=== PATIENT | female | born 1960 | race Caucasian/White ===

== ENCOUNTER 2017-06-11 15:48 | Emergency (ER) | payer OTHER ==
[2017-06-11 15:55] VITALS: RESP 18; TEMP 98.2
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
[2017-06-11] MEDS ORDERED: ONDANSETRON DISINTEGRATING 4 MG TAB PO ONE (17:56)
[2017-06-11] MEDS ORDERED: IBUPROFEN 600 MG TAB PO ONE ×2 (17:56→17:57)
[2017-06-11] MEDS ORDERED: ONDANSETRON DISINTEGRATING 4 MG TAB ONE (17:57)
[2017-06-11 18:15] VITALS: BP 114/74; PULSE 82; O2SAT 96
== END 2017-06-11 18:15 | disposition home or self-care (01) ==
DX: S09.90XA Unspecified injury of head, initial encounter (principal); S16.1XXA Strain of muscle, fascia and tendon at neck level, initial encounter; F17.200 Nicotine dependence, unspecified, uncomplicated; S79.911A Unspecified injury of right hip, initial encounter; V49.40XA Driver injured in collision with unspecified motor vehicles in traffic accident, initial encounter; Y92.410 Unspecified street and highway as the place of occurrence of the external cause; Y93.89 Activity, other specified

== ENCOUNTER → 2017-11-27 | Outpatient (CLI) | payer OTHER | LOC: FIMAGING 16:41 | PROVIDERS: ATTEND Physical Medicine & Rehabilitation | DX: M79.632 Pain in left forearm (principal); M79.89 Other specified soft tissue disorders; M18.12 Unilateral primary osteoarthritis of first carpometacarpal joint, left hand ==

== ENCOUNTER → 2018-11-05 | Outpatient (CLI) | payer OTHER | LOC: FIMAGING 11:05 ==

== ENCOUNTER 2018-11-28 05:49 | Day surgery (SDC) | payer OTHER | END 2018-11-28 12:05 | disposition home or self-care (01) | LOC: FSGY 05:49 ==